=== PATIENT | male | born 1975 | race Caucasian/White ===

== ENCOUNTER → 2016-12-09 | Outpatient (CLI) | payer MEDICARE, OTHER ==
[2016-12-09 16:32] LABS: Basophils # (A) 0.1 k/uL (0-0.2); Basophils % (A) 1 %; CH 31.5; CHCM 34.6; Eosinophils # (A) 0.2 k/uL (0-0.7); Eosinophils % (A) 4 %; HCT 47.3 % (39.0-53.0); HDW 2.49; HGB 15.9 gm/dL (13.0-17.5); Luc # (Auto) 0.15; Luc % (Auto) 2; Lymphocytes # (A) 1.4 k/uL (1.0-4.8); Lymphocytes % (A) 23 %; MCH 30.8 pg (25.0-35.0); MCHC 33.7 g/dL (31.0-37.0); MCV 91.3 fL (80.0-100.0); Mean Platelet Volume 7.5; Monocytes # (A) 0.4 k/uL (0-1.0); Monocytes % (A) 7 %; Neutrophils # (A) 3.9 k/uL (1.3-7.7); Neutrophils % (A) 63 %; RBC 5.18 m/uL (4.30-5.90); WBC 6.2 k/uL (3.8-10.6); WBC (Perox) 6.24
[2016-12-09 16:55] LABS: ALT 51 U/L (21-72); AST 31 U/L (17-59); Alkaline Phosphatase 95 U/L (38-126); Bilirubin, Delta 0.2 mg/dL (0.0-0.2); Blood Urea Nitrogen 11 mg/dL (9-20); C Reactive Protein <5.0 mg/L (<10.0); Calcium 9.5 mg/dL (8.4-10.2); Non-African American GFR(MDRD) >60 (>60 ml/min/1.73 sqM); Total Bilirubin 0.7 mg/dL (0.2-1.3)
[2016-12-09 18:51] LABS: Erythrocyte Sedimentation Rate 5 mm/hr (0-15)
== END | disposition home or self-care (01) ==
LOC: LABWHC1 16:09
PROVIDERS: ATTEND Internal Medicine Rheumatology
DX: D51.1 Vitamin B12 deficiency anemia due to selective vitamin B12 malabsorption with proteinuria (principal); D63.8 Anemia in other chronic diseases classified elsewhere; M25.50 Pain in unspecified joint; N18.9 Chronic kidney disease, unspecified; R77.0 Abnormality of albumin; E80.7 Disorder of bilirubin metabolism, unspecified; M81.0 Age-related osteoporosis without current pathological fracture; E55.9 Vitamin D deficiency, unspecified; E21.0 Primary hyperparathyroidism; Z79.1 Long term (current) use of non-steroidal anti-inflammatories (NSAID)
CPT/HCPCS: 36415; 82040; 82248; 82306; 82310; 82565; 83970; 84075; 84450; 84460; 84520; 85025; 85652; 86140

== ENCOUNTER 2017-01-15 05:28 | Emergency (ER) | payer MEDICARE, OTHER ==
[2017-01-15 05:32] VITALS: BP 142/75; PULSE 73; RESP 16; TEMP 97.9
[2017-01-15] MEDS ORDERED: PROPARACAINE 0.5% OPHTH DROPS 15 ML BTL ONE (05:34)
--- NOTE | 2017-01-15 05:55 | ED ---
ENT HPI - General Chief complaint: ENT Stated complaint: Eye Injury Time Seen by Provider: 01/15/17 05:34 Source: patient, RN notes reviewed Mode of arrival: ambulatory Limitations: no limitations - History of Present Illness Initial comments: This is a 32-year-old male who states he was cutting grass yesterday with him in the right eye. He does wear glasses he states it water for a while and got better but then he said pain in his right leg. He denies any other complaints at this time no blurred vision or blindness no other injury reported. She's looking dark and as I was concerned about a foreign body. MD complaint: trauma/injury - Related Data Home Medications Medication Instructions Recorded Confirmed Certolizumab Pegol [Cimzia] 200 mg SQ Q14D 05/06/16 05/07/16 Lansoprazole [Prevacid] 15 mg PO DAILY 05/06/16 05/07/16 Lisinopril 40 mg PO DAILY 05/06/16 05/07/16 amLODIPine [Norvasc] 10 mg PO DAILY 05/06/16 05/07/16 Methotrexate Sodium (Pf) 25 mg IJ WEEKLY 05/07/16 05/07/16 [Methotrexate 25 mg/ml Vial] Allergies Allergy/AdvReac Type Severity Reaction Status Date / Time No Known Allergies Allergy Verified 01/15/17 05:32 Review of Systems ROS Statement: Those systems with pertinent positive or pertinent negative responses have been documented in the HPI. ROS Other: All systems not noted in ROS Statement are negative. Past Medical History Past Medical History: Asthma, GERD/Reflux, Hypertension, Rheumatoid Arthritis ( RA) History of Any Multi-Drug Resistant Organisms: None Reported Additional Past Surgical History / Comment(s): EGD Past Anesthesia/Blood Transfusion Reactions: No Reported Reaction Past Psychological History: Anxiety, Bipolar Smoking Status: Current every day smoker Past Alcohol Use History: None Reported Past Drug Use History: None Reported - Past Family History Mother Family Medical History: No Reported History General Exam - General Exam Comments Initial Comments: This is a well-developed well-nourished awake alert oriented 5 male Limitations: no limitations General appearance: alert, in no apparent distress Head exam: Present: atraumatic, normocephalic, normal inspection Eye exam: Present: PERRL, EOMI, other (Subjective conjunctival hematoma seen to the lateral aspect of the right eye lateral to the limbus. The cornea is clear no hyphema.) ENT exam: Present: normal exam Neck exam: Present: normal inspection Neurological exam: Present: alert, oriented X3, CN II-XII intact Psychiatric exam: Present: normal affect, normal mood Skin exam: Present: warm, dry, intact, normal color. Absent: rash Course Vital Signs 01/15/17 05:30 Temperature 97.9 F Pulse Rate 73 Respiratory 16 Rate Blood Pressure 142/75 O2 Sat by Pulse 98 Oximetry Procedures - Procedures Initial comment: I did anesthetize the patient's right eye using proparacaine. I then put for seeming in the right eye I did dieter the eyelids no foreign body is seen. The cornea is clear the anterior chamber appears clear. I did use a Wood lamp to examine the eye. He exam is consistent with a subconjunctival hematoma to the right aspect of the right eye. Medical Decision Making - Medical Decision Making No further workup is indicated patient will be discharged I did recommend over- the-counter Visine for moisturization the patient does wear glasses and does not wear contact lenses. He has minimal discomfort at this time. He also had minimal discomfort prior to anesthetizing drops Disposition Clinical Impression: Subconjunctival hematoma Disposition: HOME SELF-CARE Condition: Good Instructions: Subconjunctival Hemorrhage (ED), Hematoma (ED) Additional Instructions: [id number] Visine for moisturization follow-up when necessary Referrals: Darrion Howard MD [Primary Care Provider] - 1-2 days
[2017-01-15] MEDS ORDERED: PROPARACAINE 0.5% OPHTH DROPS 15 ML BTL RIGHT EYE STA (05:57)
== END 2017-01-15 06:07 | disposition home or self-care (01) ==
LOC: EC 05:28
DX: S05.11XA Contusion of eyeball and orbital tissues, right eye, initial encounter (principal); M79.604 Pain in right leg; K21.9 Gastro-esophageal reflux disease without esophagitis; I10 Essential (primary) hypertension; M06.9 Rheumatoid arthritis, unspecified; F17.200 Nicotine dependence, unspecified, uncomplicated; Z79.899 Other long term (current) drug therapy; W22.8XXA Striking against or struck by other objects, initial encounter; Y93.89 Activity, other specified
CPT/HCPCS: 99283

== ENCOUNTER 2017-02-13 20:49 | Emergency (ER) | payer MEDICARE, OTHER ==
[2017-02-13] MEDS ORDERED: LORazepam 2 MG/ML SYRINGE IV STA (21:44)
[2017-02-13] MEDS ORDERED: SODIUM CHLORIDE 0.9% 1,000 ML IV STA (21:44)
--- NOTE | 2017-02-13 21:47 | ED ---
General Adult HPI - General Chief complaint: Anxiety Stated complaint: Palpitations Time Seen by Provider: 02/13/17 21:30 Source: patient, family, RN notes reviewed Mode of arrival: ambulatory Limitations: no limitations - History of Present Illness Initial comments: Patient is a pleasant 41-year-old male presenting to the emergency department complaining of anxiety and palpitations. Patient does have similar symptoms chronically however symptoms have been worse over the past week. Patient states symptoms started today as afternoon around an hour after he woke up. Patient states his heart was racing. Patient feels like his heart is still racing and pounding. Patient omits to feeling anxious. Patient is unclear why he is anxious. Patient does have chronic anxiety as well. No chest pain. No dyspnea. - Related Data Home Medications Medication Instructions Recorded Confirmed Lisinopril 40 mg PO DAILY 05/06/16 02/13/17 amLODIPine [Norvasc] 10 mg PO DAILY 05/06/16 02/13/17 Methotrexate Sodium (Pf) 10 mg SQ WE 05/07/16 02/13/17 [Methotrexate 25 mg/ml Vial] ALPRAZolam [Xanax] 0.25 mg PO TID PRN 02/13/17 02/13/17 Adalimumab [Humira Pen] 40 mg SQ [id number] 02/13/17 02/13/17 Omeprazole Magnesium [Prilosec OTC] 20 mg PO DAILY 02/13/17 02/13/17 hydrALAZINE HCL [Apresoline] 100 mg PO BID 02/13/17 02/13/17 Allergies Allergy/AdvReac Type Severity Reaction Status Date / Time No Known Allergies Allergy Verified 02/13/17 21:30 Review of Systems ROS Statement: Those systems with pertinent positive or pertinent negative responses have been documented in the HPI. ROS Other: All systems not noted in ROS Statement are negative. Constitutional: Denies: fever Eyes: Denies: eye pain ENT: Denies: ear pain Respiratory: Denies: cough Cardiovascular: Reports: palpitations. Denies: chest pain Endocrine: Denies: fatigue Gastrointestinal: Denies: abdominal pain Genitourinary: Denies: dysuria Musculoskeletal: Denies: back pain Skin: Denies: rash Neurological: Reports: headache. Denies: weakness Past Medical History Past Medical History: Asthma, GERD/Reflux, Hypertension, Rheumatoid Arthritis ( RA) History of Any Multi-Drug Resistant Organisms: None Reported Additional Past Surgical History / Comment(s): EGD Past Anesthesia/Blood Transfusion Reactions: No Reported Reaction Past Psychological History: Anxiety, Bipolar Smoking Status: Current every day smoker Past Alcohol Use History: None Reported Past Drug Use History: Marijuana - Past Family History Mother Family Medical History: No Reported History General Exam Limitations: no limitations General appearance: alert, in no apparent distress Head exam: Present: atraumatic Eye exam: Present: normal appearance, PERRL ENT exam: Present: normal oropharynx Neck exam: Present: normal inspection Respiratory exam: Present: normal lung sounds bilaterally Cardiovascular Exam: Present: tachycardia Expanded Peripheral pulses: 2+: Radial (R), Radial (L), Posterior Tibialis (R), Posterior Tibialis (L) GI/Abdominal exam: Present: soft. Absent: tenderness Extremities exam: Present: normal inspection. 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 OH 180. QRS 98. QT 3:30. QTC 452. Right axis. Normal QRS. No acute ST change. Medical Decision Making - Medical Decision Making Patient reevaluated and resting comfortably in bed. Palpitations have resolved. Patient does complain of mild headache and nausea. Patient states headache is chronic from his neck problems. Patient and family updated on results and need for follow-up. Patient is comfortable with discharge. - Lab Data Result diagrams: 02/13/17 21:10 02/13/17 21:10 Lab Results 02/13/17 02/13/17 02/13/17 Range/Units 21:10 21:10 21:10 WBC 11.3 H (3.8-10.6) k/uL RBC 5.23 (4.30-5.90) m/uL Hgb 16.6 (13.0-17.5) gm/dL Hct 45.8 (39.0-53.0) % MCV 87.6 (80.0-100.0) fL MCH 31.8 (25.0-35.0) pg MCHC 36.3 (31.0-37.0) g/dL RDW 12.9 (11.5-15.5) % Plt Count 238 (150-450) k/uL Neutrophils % 69 % Lymphocytes % 18 % Monocytes % 8 % Eosinophils % 2 % Basophils % 1 % Neutrophils # 7.9 H (1.3-7.7) k/uL Lymphocytes # 2.0 (1.0-4.8) k/uL Monocytes # 0.9 (0-1.0) k/uL Eosinophils # 0.3 (0-0.7) k/uL Basophils # 0.1 (0-0.2) k/uL D-Dimer (<0.60) mg/L FEU Sodium 136 L (137-145) mmol/L Potassium 4.0 (3.5-5.1) mmol/L Chloride 104 (98-107) mmol/L Carbon Dioxide 22 (22-30) mmol/L Anion Gap 10 mmol/L BUN 11 (9-20) mg/dL Creatinine 0.66 (0.66-1.25) mg/dL Est GFR (MDRD) Af Amer >60 (>60 ml/min/1.73 sqM) Est GFR (MDRD) Non-Af >60 (>60 ml/min/1.73 sqM) Glucose 109 H (74-99) mg/dL Calcium 9.2 (8.4-10.2) mg/dL Total Bilirubin 0.5 (0.2-1.3) mg/dL AST 33 (17-59) U/L ALT 57 (21-72) U/L Alkaline Phosphatase 110 (38-126) U/L Total Creatine Kinase (55-170) U/L Troponin I <0.012 (0.000-0.034) ng/mL Total Protein 7.6 (6.3-8.2) g/dL Albumin 4.5 (3.5-5.0) g/dL 02/13/17 02/13/17 Range/Units 21:53 21:53 WBC (3.8-10.6) k/uL RBC (4.30-5.90) m/uL Hgb (13.0-17.5) gm/dL Hct (39.0-53.0) % MCV (80.0-100.0) fL MCH (25.0-35.0) pg MCHC (31.0-37.0) g/dL RDW (11.5-15.5) % Plt Count (150-450) k/uL Neutrophils % % Lymphocytes % % Monocytes % % Eosinophils % % Basophils % % Neutrophils # (1.3-7.7) k/uL Lymphocytes # (1.0-4.8) k/uL Monocytes # (0-1.0) k/uL Eosinophils # (0-0.7) k/uL Basophils # (0-0.2) k/uL D-Dimer <0.17 (<0.60) mg/L FEU Sodium (137-145) mmol/L Potassium (3.5-5.1) mmol/L Chloride (98-107) mmol/L Carbon Dioxide (22-30) mmol/L Anion Gap mmol/L BUN (9-20) mg/dL Creatinine (0.66-1.25) mg/dL Est GFR (MDRD) Af Amer (>60 ml/min/1.73 sqM) Est GFR (MDRD) Non-Af (>60 ml/min/1.73 sqM) Glucose (74-99) mg/dL Calcium (8.4-10.2) mg/dL Total Bilirubin (0.2-1.3) mg/dL AST (17-59) U/L ALT (21-72) U/L Alkaline Phosphatase (38-126) U/L Total Creatine Kinase 83 (55-170) U/L Troponin I (0.000-0.034) ng/mL Total Protein (6.3-8.2) g/dL Albumin (3.5-5.0) g/dL - Radiology Data Radiology results: image reviewed (Chest x-ray shows no acute process.) Disposition Clinical Impression: Palpitations Disposition: HOME SELF-CARE Condition: Stable Instructions: Generalized Anxiety Disorder (ED), Palpitations (ED) Additional Instructions: Please follow-up to in the next day or 2 for recheck. Return for increased heart rate, pain or difficulty in breathing, worsening or change in symptoms or other concerns. Referrals: Darrion Howard MD [Primary Care Provider] - 1-2 days Time of Disposition: 22:55
[2017-02-13 21:48] LABS: Basophils # (A) 0.1 k/uL (0-0.2); Basophils % (A) 1 %; CHCM 35.5; Eosinophils # (A) 0.3 k/uL (0-0.7); Eosinophils % (A) 2 %; HCT 45.8 % (39.0-53.0); HDW 2.48; HGB 16.6 gm/dL (13.0-17.5); Luc # (Auto) 0.19; Luc % (Auto) 2; Lymphocytes % (A) 18 %; MCH 31.8 pg (25.0-35.0); MCHC 36.3 g/dL (31.0-37.0); MCV 87.6 fL (80.0-100.0); Mean Platelet Volume 7.1; Monocytes # (A) 0.9 k/uL (0-1.0); Monocytes % (A) 8 %; Neutrophils # (A) 7.9 k/uL (1.3-7.7); Neutrophils % (A) 69 %; RBC 5.23 m/uL (4.30-5.90); RDW 12.9 % (11.5-15.5); WBC 11.3 k/uL (3.8-10.6); WBC (Perox) 11.52
[2017-02-13 21:56] LABS: ALT 57 U/L (21-72); AST 33 U/L (17-59); Alkaline Phosphatase 110 U/L (38-126); Anion Gap 10 mmol/L; Blood Urea Nitrogen 11 mg/dL (9-20); Calcium 9.2 mg/dL (8.4-10.2); Carbon Dioxide 22 mmol/L (22-30); Chloride 104 mmol/L (98-107); Glucose 109 mg/dL (74-99); Non-African American GFR(MDRD) >60 (>60 ml/min/1.73 sqM); Sodium 136 mmol/L (137-145); Total Bilirubin 0.5 mg/dL (0.2-1.3); Total Protein 7.6 g/dL (6.3-8.2)
--- NOTE | 2017-02-13 22:31 | XR ---
EXAM: XR Chest, 2 Views CLINICAL HISTORY: Reason: palpitations TECHNIQUE: Frontal and lateral views of the chest. COMPARISON: No relevant prior studies available. FINDINGS: Lungs: Unremarkable. No consolidation. Pleural space: Unremarkable. No pneumothorax. Heart: Unremarkable. No cardiomegaly. Mediastinum: Unremarkable. Bones/joints: No acute osseous abnormality. IMPRESSION: No acute cardiopulmonary process.
[2017-02-13 22:53] LABS: Creatine Kinase MB 0.5 ng/mL (0.0-2.4)
[2017-02-13] MEDS ORDERED: ONDANSETRON 4 MG/2 ML VIAL IVP STA (22:53)
[2017-02-13 22:55] VITALS: TEMP 97.7
[2017-02-13 23:16] VITALS: BP 141/81; PULSE 93; RESP 18
== END 2017-02-13 23:16 | disposition home or self-care (01) ==
LOC: EC 20:49
DX: R00.2 Palpitations (principal); R51 Headache; R11.0 Nausea; F41.9 Anxiety disorder, unspecified; I10 Essential (primary) hypertension; K21.9 Gastro-esophageal reflux disease without esophagitis; M06.9 Rheumatoid arthritis, unspecified; F17.200 Nicotine dependence, unspecified, uncomplicated; Z79.899 Other long term (current) drug therapy
CPT/HCPCS: 99284; 96374; 96375; 96361; 36415; 93005; 85379; 80053; 82550; 82553; 84484; 85025; 71020; J2060; J2405

== ENCOUNTER → 2017-04-01 | Outpatient (CLI) | payer MEDICARE, OTHER ==
[2017-04-01 15:27] LABS: Basophils # (A) 0.1 k/uL (0-0.2); Basophils % (A) 1 %; CH 30.7; CHCM 34.8; Eosinophils # (A) 0.2 k/uL (0-0.7); Eosinophils % (A) 4 %; HCT 44.7 % (39.0-53.0); HDW 2.62; HGB 15.7 gm/dL (13.0-17.5); Luc % (Auto) 3; Lymphocytes # (A) 1.6 k/uL (1.0-4.8); Lymphocytes % (A) 26 %; MCH 31.1 pg (25.0-35.0); MCHC 35.1 g/dL (31.0-37.0); MCV 88.6 fL (80.0-100.0); Monocytes # (A) 0.6 k/uL (0-1.0); Monocytes % (A) 9 %; Neutrophils # (A) 3.5 k/uL (1.3-7.7); Neutrophils % (A) 57 %; RBC 5.05 m/uL (4.30-5.90); RDW 13.3 % (11.5-15.5); WBC 6.1 k/uL (3.8-10.6); WBC (Perox) 6.03
[2017-04-01 15:30] LABS: ALT 56 U/L (21-72); AST 29 U/L (17-59); Blood Urea Nitrogen 13 mg/dL (9-20); Non-African American GFR(MDRD) >60 (>60 ml/min/1.73 sqM)
[2017-04-01 19:45] LABS: Erythrocyte Sedimentation Rate 10 mm/hr (0-15)
== END | disposition home or self-care (01) ==
LOC: LABWHC1 14:49
PROVIDERS: ATTEND Internal Medicine Rheumatology
DX: N18.9 Chronic kidney disease, unspecified (principal); M25.50 Pain in unspecified joint; D63.8 Anemia in other chronic diseases classified elsewhere; Z79.1 Long term (current) use of non-steroidal anti-inflammatories (NSAID)
CPT/HCPCS: 36415; 82565; 84450; 84460; 84520; 85025; 85652

== ENCOUNTER → 2017-07-17 | Outpatient (CLI) | payer MEDICARE, OTHER ==
[2017-07-17 15:45] LABS: Basophils # (A) 0.1 k/uL (0-0.2); Basophils % (A) 1 %; CH 31.1; CHCM 33.3; Eosinophils # (A) 0.3 k/uL (0-0.7); Eosinophils % (A) 5 %; HDW 2.32; HGB 15.7 gm/dL (13.0-17.5); Luc # (Auto) 0.16; Luc % (Auto) 2; Lymphocytes # (A) 1.7 k/uL (1.0-4.8); Lymphocytes % (A) 23 %; MCH 29.6 pg (25.0-35.0); MCHC 31.5 g/dL (31.0-37.0); MCV 93.9 fL (80.0-100.0); Mean Platelet Volume 7.8; Monocytes # (A) 0.8 k/uL (0-1.0); Monocytes % (A) 11 %; Neutrophils # (A) 4.3 k/uL (1.3-7.7); Neutrophils % (A) 58 %; RBC 5.32 m/uL (4.30-5.90); RDW 14.6 % (11.5-15.5); WBC 7.5 k/uL (3.8-10.6); WBC (Perox) 7.26
[2017-07-17 16:00] LABS: ALT 68 U/L (21-72); AST 32 U/L (17-59); Alkaline Phosphatase 102 U/L (38-126); Blood Urea Nitrogen 12 mg/dL (9-20); C Reactive Protein 8.1 mg/L (<10.0); Calcium 9.9 mg/dL (8.4-10.2); Non-African American GFR(MDRD) >60 (>60 ml/min/1.73 sqM); Total Bilirubin 0.6 mg/dL (0.2-1.3)
[2017-07-17 19:33] LABS: Erythrocyte Sedimentation Rate 6 mm/hr (0-15)
== END | disposition home or self-care (01) ==
LOC: LABWHC1 15:11
PROVIDERS: ATTEND Internal Medicine Rheumatology
DX: N18.9 Chronic kidney disease, unspecified (principal); M25.50 Pain in unspecified joint; R77.0 Abnormality of albumin; E80.7 Disorder of bilirubin metabolism, unspecified; M81.0 Age-related osteoporosis without current pathological fracture; Z79.1 Long term (current) use of non-steroidal anti-inflammatories (NSAID)
CPT/HCPCS: 36415; 82040; 82247; 82306; 82310; 82565; 83970; 84075; 84450; 84460; 84520; 85025; 85652; 86140

== ENCOUNTER → 2017-10-13 | Outpatient (CLI) | payer MEDICARE ==
[2017-10-13 16:35] LABS: Basophils # (A) 0.1 k/uL (0-0.2); Basophils % (A) 1 %; Eosinophils # (A) 0.4 k/uL (0-0.7); Eosinophils % (A) 5 %; HCT 46.8 % (39.0-53.0); HGB 15.7 gm/dL (13.0-17.5); Lymphocytes # (A) 1.8 k/uL (1.0-4.8); Lymphocytes % (A) 27 %; MCH 29.9 pg (25.0-35.0); MCHC 33.6 g/dL (31.0-37.0); Mean Platelet Volume 7.8; Monocytes # (A) 0.7 k/uL (0-1.0); Monocytes % (A) 10 %; Neutrophils # (A) 3.7 k/uL (1.3-7.7); Neutrophils % (A) 55 %; Platelet Count 202 k/uL (150-450); RBC 5.26 m/uL (4.30-5.90); RDW 12.9 % (11.5-15.5); WBC 6.7 k/uL (3.8-10.6)
[2017-10-13 16:46] LABS: ALT 55 U/L (21-72); AST 31 U/L (17-59); Albumin 4.4 g/dL (3.5-5.0); Blood Urea Nitrogen 12 mg/dL (9-20); C Reactive Protein 5.4 mg/L (<10.0); Calcium 9.8 mg/dL (8.4-10.2)
[2017-10-13 19:30] LABS: Erythrocyte Sedimentation Rate 3 mm/hr (0-15)
[2017-10-14 03:34] LABS: Vitamin D 25 Hydroxy 21.1 ng/mL (30.0-100.0)
== END | disposition home or self-care (01) ==
LOC: LABWHC1 15:43
PROVIDERS: ATTEND Internal Medicine Rheumatology
DX: M25.50 Pain in unspecified joint (principal); R77.0 Abnormality of albumin; N18.9 Chronic kidney disease, unspecified; Z79.1 Long term (current) use of non-steroidal anti-inflammatories (NSAID); E55.9 Vitamin D deficiency, unspecified; E21.0 Primary hyperparathyroidism; L40.9 Psoriasis, unspecified; M10.09 Idiopathic gout, multiple sites
CPT/HCPCS: 36415; 82040; 82306; 82310; 82565; 83970; 84450; 84460; 84520; 84550; 85025; 85652; 86140

== ENCOUNTER → 2018-04-23 | Outpatient (CLI) | payer MEDICARE ==
[~2018-04-23] MED LIST: INFLIXIMAB-DYYB 800 MG in SODIUM CHLORIDE 0.9% 250 ML IV NR; SODIUM CHLORIDE 0.9% 500 ML in EMPTY BAG 1 BAG IV NR; SODIUM CHLORIDE 0.9% 500 ML in EMPTY BAG 1 BAG IV PRN
[2018-04-23 11:27] VITALS: TEMP 98
[2018-04-23 12:00] LABS: Basophils # (A) 0.1 k/uL (0-0.2); Basophils % (A) 1 %; Eosinophils # (A) 0.5 k/uL (0-0.7); Eosinophils % (A) 5 %; HCT 45.5 % (39.0-53.0); HGB 15.3 gm/dL (13.0-17.5); Lymphocytes # (A) 2.3 k/uL (1.0-4.8); Lymphocytes % (A) 26 %; MCH 30.2 pg (25.0-35.0); MCHC 33.7 g/dL (31.0-37.0); MCV 89.6 fL (80.0-100.0); Mean Platelet Volume 7.2; Monocytes # (A) 0.8 k/uL (0-1.0); Monocytes % (A) 10 %; Neutrophils # (A) 4.9 k/uL (1.3-7.7); Neutrophils % (A) 56 %; Platelet Count 199 k/uL (150-450); RBC 5.08 m/uL (4.30-5.90); RDW 12.9 % (11.5-15.5); WBC 8.7 k/uL (3.8-10.6)
[2018-04-23 12:04] LABS: ALT 49 U/L (21-72); AST 31 U/L (17-59); Blood Urea Nitrogen 14 mg/dL (9-20)
[2018-04-23 12:27] VITALS: BP 129/80; PULSE 75; RESP 16
[2018-04-23 12:30] LABS: C Reactive Protein 8.2 mg/L (<10.0)
[2018-04-23 13:08] LABS: Erythrocyte Sedimentation Rate 6 mm/hr (0-15)
== END ==
LOC: PROCWHC3 11:05
PROVIDERS: ATTEND Internal Medicine Rheumatology
DX: L40.50 Arthropathic psoriasis, unspecified (principal)
CPT/HCPCS: 85652; 82565; 84450; 84460; 84520; 85025; 86140; 96413; 96415; 36415; Q5103

== ENCOUNTER → 2019-02-26 | Day surgery (SDC) | payer MEDICARE ==
[~2019-02-26] MED LIST changes: +GLUCAGON 1 MG/ML VIAL IM STA; -INFLIXIMAB-DYYB 800 MG in SODIUM CHLORIDE 0.9% 250 ML IV NR; -SODIUM CHLORIDE 0.9% 500 ML in EMPTY BAG 1 BAG IV NR; -SODIUM CHLORIDE 0.9% 500 ML in EMPTY BAG 1 BAG IV PRN
[2019-02-26 15:04] VITALS: BP 138/77; PULSE 78; RESP 16; TEMP 97.9
== END | disposition home or self-care (01) ==
LOC: RADMRIMAIN 14:17
PROVIDERS: ATTEND Internal Medicine Gastroenterology
DX: K52.9 Noninfective gastroenteritis and colitis, unspecified (principal); Z53.8 Procedure and treatment not carried out for other reasons
CPT/HCPCS: 96372; 36415; J1610

== ENCOUNTER → 2020-02-08 | Outpatient (CLI) | payer MEDICARE ==
[2020-02-08 15:04] LABS: Basophils # (A) 0.1 k/uL (0-0.2); Basophils % (A) 1 %; Eosinophils # (A) 0.4 k/uL (0-0.7); Eosinophils % (A) 5 %; HCT 46.6 % (39.0-53.0); HGB 15.1 gm/dL (13.0-17.5); Lymphocytes # (A) 1.5 k/uL (1.0-4.8); Lymphocytes % (A) 17 %; MCHC 32.5 g/dL (31.0-37.0); MCV 92.3 fL (80.0-100.0); Mean Platelet Volume 7.4; Monocytes # (A) 0.8 k/uL (0-1.0); Monocytes % (A) 9 %; Neutrophils # (A) 5.8 k/uL (1.3-7.7); Neutrophils % (A) 66 %; Platelet Count 250 k/uL (150-450); RBC 5.05 m/uL (4.30-5.90); RDW 12.7 % (11.5-15.5); WBC 8.8 k/uL (3.8-10.6)
[2020-02-09 00:39] LABS: Erythrocyte Sedimentation Rate 11 mm/Hr (0-15)
[2020-02-09 01:35] LABS: African American GFR (CKD) 127.7 (60.0-200.0); Albumin 4.6 g/dL (3.80-4.90); Anion Gap 7.8 mmol/L (4.00-12.00); Calcium 9.2 mg/dL (8.7-10.3); Carbon Dioxide 25.2 mmol/L (21.6-31.8); Non-African American GFR(CKD) 110.2 (60.0-200.0); Potassium 4.5 mmol/L (3.5-5.5)
== END | disposition home or self-care (01) ==
LOC: LABWHC1 14:41
PROVIDERS: ATTEND Internal Medicine Rheumatology
DX: M25.50 Pain in unspecified joint (principal)
CPT/HCPCS: 36415; 80051; 82040; 82310; 82565; 84450; 84460; 84520; 85025; 85652; 86140; 86480

== ENCOUNTER → 2020-05-08 | Outpatient (CLI) | payer MEDICARE ==
[2020-05-08 15:39] LABS: Basophils # (A) 0.1 k/uL (0-0.2); Basophils % (A) 1 %; Eosinophils # (A) 0.4 k/uL (0-0.7); Eosinophils % (A) 4 %; HCT 46.2 % (39.0-53.0); HGB 15.4 gm/dL (13.0-17.5); Lymphocytes # (A) 1.4 k/uL (1.0-4.8); Lymphocytes % (A) 16 %; MCH 31.4 pg (25.0-35.0); MCHC 33.4 g/dL (31.0-37.0); Mean Platelet Volume 7.1; Monocytes # (A) 0.6 k/uL (0-1.0); Monocytes % (A) 8 %; Neutrophils # (A) 5.9 k/uL (1.3-7.7); Neutrophils % (A) 70 %; Platelet Count 287 k/uL (150-450); RBC 4.92 m/uL (4.30-5.90); RDW 13.5 % (11.5-15.5); WBC 8.4 k/uL (3.8-10.6)
[2020-05-08 23:48] LABS: Erythrocyte Sedimentation Rate 20 mm/Hr (0-15)
[2020-05-09 03:42] LABS: African American GFR (CKD) 134.9 (60.0-200.0); Albumin 4.5 g/dL (3.80-4.90); C Reactive Protein 2.3 mg/dL (0.0-0.8); Calcium 9.4 mg/dL (8.7-10.3); Non-African American GFR(CKD) 116.4 (60.0-200.0)
== END | disposition home or self-care (01) ==
LOC: LABWHC1 14:46
PROVIDERS: ATTEND Internal Medicine Rheumatology
DX: M25.50 Pain in unspecified joint (principal); M06.4 Inflammatory polyarthropathy; Z79.899 Other long term (current) drug therapy
CPT/HCPCS: 36415; 82040; 82310; 82565; 84450; 84460; 84520; 85025; 85652; 86140

== ENCOUNTER → 2020-11-01 | Outpatient (CLI) | payer MEDICARE ==
[2020-11-02 01:36] LABS: Basophils # (A) 0.08 X 10*3/uL (0.00-0.10); Basophils % (A) 0.9 %; Eosinophils # (A) 0.38 X 10*3/uL (0.04-0.35); Eosinophils % (A) 4.2 %; HCT 44.6 % (39.6-50.0); HGB 14.8 g/dL (13.0-17.0); Lymphocytes # (A) 1.69 X 10*3/uL (0.90-5.00); Lymphocytes % (A) 18.8 %; MCH 30.9 pg (27.0-32.0); MCHC 33.2 g/dL (32.0-37.0); MCV 93.1 fL (80.0-97.0); Mean Platelet Volume 10.9 fL (9.5-12.2); Monocytes % (A) 11.1 %; Neutrophils # (A) 5.83 X 10*3/uL (1.80-7.70); Neutrophils % (A) 64.8 %; Platelet Count 285 X 10*3/uL (140-440); RBC 4.79 X 10*6/uL (4.40-5.60); RDW 13.5 % (11.5-14.5)
[2020-11-02 03:34] LABS: Albumin 4.7 g/dL (3.80-4.90); C Reactive Protein 1.5 mg/dL (0.0-0.8); Calcium 9.4 mg/dL (8.7-10.3); Non-African American GFR(CKD) 115.6 (60.0-200.0)
[2020-11-02 03:45] LABS: Erythrocyte Sedimentation Rate 13 mm/Hr (0-15)
== END | disposition home or self-care (01) ==
LOC: LABWHC1 15:43
PROVIDERS: ATTEND Internal Medicine Rheumatology
DX: E55.9 Vitamin D deficiency, unspecified (principal); M06.4 Inflammatory polyarthropathy; M25.50 Pain in unspecified joint; Z79.899 Other long term (current) drug therapy
CPT/HCPCS: 36415; 82040; 82306; 82310; 82565; 82652; 82784; 84450; 84460; 84520; 85025; 85652; 86140

== ENCOUNTER → 2021-01-08 | Outpatient (CLI) | payer MEDICARE ==
[2021-01-08 23:23] LABS: Basophils # (A) 0.07 X 10*3/uL (0.00-0.10); Basophils % (A) 0.8 %; Eosinophils # (A) 0.37 X 10*3/uL (0.04-0.35); Eosinophils % (A) 4.3 %; HCT 44.4 % (39.6-50.0); Lymphocytes # (A) 1.35 X 10*3/uL (0.90-5.00); Lymphocytes % (A) 15.7 %; MCH 30.9 pg (27.0-32.0); MCHC 33.8 g/dL (32.0-37.0); MCV 91.4 fL (80.0-97.0); Mean Platelet Volume 10.5 fL (9.5-12.2); Monocytes # (A) 0.95 X 10*3/uL (0.20-1.00); Monocytes % (A) 11.1 %; Neutrophils # (A) 5.83 X 10*3/uL (1.80-7.70); Neutrophils % (A) 67.9 %; Platelet Count 268 X 10*3/uL (140-440); RBC 4.86 X 10*6/uL (4.40-5.60); WBC 8.59 X 10*3/uL (4.50-10.00)
[2021-01-09 02:33] LABS: African American GFR (CKD) 142.7 (60.0-200.0); C Reactive Protein 1.2 mg/dL (0.0-0.8); Non-African American GFR(CKD) 123.1 (60.0-200.0)
[2021-01-09 14:31] LABS: Erythrocyte Sedimentation Rate 10 mm/Hr (0-15)
== END | disposition home or self-care (01) ==
LOC: LABWHC1 15:52
PROVIDERS: ATTEND Internal Medicine Rheumatology
DX: M06.4 Inflammatory polyarthropathy (principal); R19.5 Other fecal abnormalities; Z79.01 Long term (current) use of anticoagulants
CPT/HCPCS: 36415; 82565; 84450; 84460; 84520; 85025; 85652; 86140

== ENCOUNTER → 2021-04-17 | Outpatient (CLI) | payer MEDICARE ==
[2021-04-17 22:46] LABS: Basophils # (A) 0.09 X 10*3/uL (0.00-0.10); Eosinophils # (A) 0.36 X 10*3/uL (0.04-0.35); Eosinophils % (A) 4.2 %; HCT 44.8 % (39.6-50.0); HGB 15.3 g/dL (13.0-17.0); Lymphocytes # (A) 1.46 X 10*3/uL (0.90-5.00); Lymphocytes % (A) 16.9 %; MCH 31.2 pg (27.0-32.0); MCHC 34.2 g/dL (32.0-37.0); MCV 91.2 fL (80.0-97.0); Mean Platelet Volume 10.7 fL (9.5-12.2); Monocytes # (A) 0.93 X 10*3/uL (0.20-1.00); Monocytes % (A) 10.8 %; Neutrophils # (A) 5.78 X 10*3/uL (1.80-7.70); Neutrophils % (A) 66.9 %; Platelet Count 264 X 10*3/uL (140-440); RBC 4.91 X 10*6/uL (4.40-5.60); RDW 13.4 % (11.5-14.5); WBC 8.64 X 10*3/uL (4.50-10.00)
[2021-04-18 00:03] LABS: Erythrocyte Sedimentation Rate 7 mm/Hr (0-15)
[2021-04-18 07:15] LABS: African American GFR (CKD) 142.7 (60.0-200.0); C Reactive Protein 0.5 mg/dL (0.0-0.8); Non-African American GFR(CKD) 123.1 (60.0-200.0)
== END | disposition home or self-care (01) ==
LOC: LABWHC1 16:00
PROVIDERS: ATTEND Internal Medicine Rheumatology
DX: R19.5 Other fecal abnormalities (principal)
CPT/HCPCS: 36415; 82565; 84450; 84460; 84520; 85025; 85652; 86140

== ENCOUNTER → 2022-01-24 | Outpatient (CLI) | payer MEDICARE ==
[2022-01-24 23:01] LABS: Blood Urea Nitrogen 11.8 mg/dL (9.0-27.0); C Reactive Protein 0.6 mg/dL (0.00-0.80); Non-African American GFR(CKD) 113.1 (60.0-200.0)
[2022-01-24 23:02] LABS: Basophils # (A) 0.07 X 10*3/uL (0.00-0.10); Basophils % (A) 0.9 %; Eosinophils # (A) 0.43 X 10*3/uL (0.04-0.35); Eosinophils % (A) 5.5 %; HCT 45.2 % (39.6-50.0); HGB 14.9 g/dL (13.0-17.0); Immature Grans, Automated 0.1 %; Lymphocytes # (A) 1.45 X 10*3/uL (0.90-5.00); Lymphocytes % (A) 18.6 %; MCH 30.2 pg (27.0-32.0); MCV 91.7 fL (80.0-97.0); Mean Platelet Volume 11.1 fL (9.5-12.2); Monocytes # (A) 0.91 X 10*3/uL (0.20-1.00); Monocytes % (A) 11.7 %; NRBC Per 100 WBC 0 /100 WBCS (0.0-0.0); Neutrophils # (A) 4.93 X 10*3/uL (1.80-7.70); Neutrophils % (A) 63.2 %; Platelet Count 290 X 10*3/uL (140-440); RBC 4.93 X 10*6/uL (4.40-5.60); RDW 13.1 % (11.5-14.5)
[2022-01-25 00:52] LABS: Erythrocyte Sedimentation Rate 13 mm/Hr (0-15)
== END | disposition home or self-care (01) ==
LOC: LABWHC1 16:18
PROVIDERS: ATTEND Internal Medicine Gastroenterology
DX: K52.9 Noninfective gastroenteritis and colitis, unspecified (principal); M06.4 Inflammatory polyarthropathy; Z79.01 Long term (current) use of anticoagulants; M25.50 Pain in unspecified joint
CPT/HCPCS: 36415; 82565; 82656; 84450; 84460; 84520; 85025; 85652; 86140

== ENCOUNTER → 2022-06-03 | Outpatient (CLI) | payer MEDICARE ==
[2022-06-03 23:47] LABS: African American GFR (CKD) 128.1 (60.0-200.0); Blood Urea Nitrogen 11.3 mg/dL (9.0-27.0); C Reactive Protein 1.6 mg/dL (0.00-0.80); Non-African American GFR(CKD) 110.5 (60.0-200.0)
[2022-06-03 23:50] LABS: Basophils # (A) 0.09 X 10*3/uL (0.00-0.10); Basophils % (A) 0.9 %; Eosinophils % (A) 6.2 %; HCT 43.6 % (39.6-50.0); HGB 14.6 g/dL (13.0-17.0); Immature Grans, Automated 0.4 %; Lymphocytes # (A) 1.52 X 10*3/uL (0.90-5.00); Lymphocytes % (A) 15.6 %; MCH 30.4 pg (27.0-32.0); MCHC 33.5 g/dL (32.0-37.0); MCV 90.8 fL (80.0-97.0); Mean Platelet Volume 10.8 fL (9.5-12.2); Monocytes # (A) 1.22 X 10*3/uL (0.20-1.00); Monocytes % (A) 12.5 %; NRBC Per 100 WBC 0 /100 WBCS (0.0-0.0); Neutrophils # (A) 6.26 X 10*3/uL (1.80-7.70); Neutrophils % (A) 64.4 %; Platelet Count 240 X 10*3/uL (140-440); RDW 13.7 % (11.5-14.5); WBC 9.73 X 10*3/uL (4.50-10.00)
[2022-06-04 00:21] LABS: Erythrocyte Sedimentation Rate 9 mm/Hr (0-15)
== END | disposition home or self-care (01) ==
LOC: LABWHC1 16:20
PROVIDERS: ATTEND Internal Medicine Rheumatology
DX: M25.50 Pain in unspecified joint (principal); M06.4 Inflammatory polyarthropathy; Z79.01 Long term (current) use of anticoagulants
CPT/HCPCS: 36415; 82565; 84450; 84460; 84520; 85025; 85652; 86140

== ENCOUNTER → 2022-10-29 | Outpatient (CLI) | payer MEDICARE ==
[2022-10-29 19:44] LABS: Basophils # (A) 0.07 X 10*3/uL (0.00-0.10); Basophils % (A) 0.8 %; Eosinophils # (A) 0.48 X 10*3/uL (0.04-0.35); Eosinophils % (A) 5.7 %; HCT 44.5 % (39.6-50.0); HGB 15.1 g/dL (13.0-17.0); Immature Grans, Automated 0.4 %; Lymphocytes # (A) 1.32 X 10*3/uL (0.90-5.00); Lymphocytes % (A) 15.7 %; MCH 30.8 pg (27.0-32.0); MCHC 33.9 g/dL (32.0-37.0); MCV 90.6 fL (80.0-97.0); Mean Platelet Volume 10.6 fL (9.5-12.2); Monocytes # (A) 1.38 X 10*3/uL (0.20-1.00); Monocytes % (A) 16.4 %; NRBC Per 100 WBC 0 /100 WBCS (0.0-0.0); Neutrophils # (A) 5.14 X 10*3/uL (1.80-7.70); Platelet Count 266 X 10*3/uL (140-440); RBC 4.91 X 10*6/uL (4.40-5.60); RDW 13.3 % (11.5-14.5); WBC 8.42 X 10*3/uL (4.50-10.00)
[2022-10-29 21:03] LABS: Erythrocyte Sedimentation Rate 10 mm/Hr (0-15)
[2022-10-30 01:56] LABS: Blood Urea Nitrogen 13.3 mg/dL (9.0-27.0); Calcium 9.5 mg/dL (8.7-10.3); Non-African American GFR(CKD) 107.9 (60.0-200.0)
[2022-10-30 02:18] LABS: C Reactive Protein 1.8 mg/dL (0.00-0.80)
== END | disposition home or self-care (01) ==
LOC: LABWHC1 15:39
PROVIDERS: ATTEND Internal Medicine Rheumatology
DX: M45.7 Ankylosing spondylitis of lumbosacral region (principal); E55.9 Vitamin D deficiency, unspecified
CPT/HCPCS: 36415; 82306; 82310; 82565; 84450; 84460; 84520; 85025; 85652; 86140

== ENCOUNTER → 2023-07-02 | Outpatient (CLI) | payer MEDICARE ==
[2023-07-03 02:37] LABS: Basophils # (A) 0.07 X 10*3/uL (0.00-0.10); Basophils % (A) 0.9 %; Eosinophils # (A) 0.38 X 10*3/uL (0.04-0.35); Eosinophils % (A) 4.9 %; HCT 46.4 % (39.6-50.0); HGB 15.7 g/dL (13.0-17.0); Lymphocytes # (A) 1.52 X 10*3/uL (0.90-5.00); Lymphocytes % (A) 19.6 %; MCH 31.7 pg (27.0-32.0); MCHC 33.8 g/dL (32.0-37.0); MCV 93.5 FL (80.0-97.0); Mean Platelet Volume 10.2 FL (9.5-12.2); Monocytes # (A) 0.91 X 10*3/uL (0.20-1.00); Monocytes % (A) 11.8 %; NRBC Per 100 WBC 0 X 10*3/uL (0.00-0.01); Neutrophils # (A) 4.85 X 10*3/uL (1.80-7.70); Neutrophils % (A) 62.7 %; Platelet Count 267 X 10*3/uL (140-440); RBC 4.96 X 10*6/uL (4.40-5.60); RDW 13.6 % (11.5-14.5); WBC 7.74 X 10*3/uL (4.50-10.00)
[2023-07-03 03:11] LABS: ALT 95 U/L (10-49); AST 58 U/L (14-35); Blood Urea Nitrogen 11.5 mg/dL (9.0-27.0); Calcium 9.5 mg/dL (8.7-10.3)
[2023-07-03 04:33] LABS: Erythrocyte Sedimentation Rate 9 mm/Hr (0-15)
== END | disposition home or self-care (01) ==
LOC: LABWHC1 16:13
PROVIDERS: ATTEND Internal Medicine Rheumatology
DX: M25.50 Pain in unspecified joint (principal); M06.4 Inflammatory polyarthropathy; M81.0 Age-related osteoporosis without current pathological fracture; Z79.01 Long term (current) use of anticoagulants
CPT/HCPCS: 36415; 82306; 82310; 82565; 84450; 84460; 84520; 85025; 85652; 86140

== ENCOUNTER → 2023-11-04 | Outpatient (CLI) | payer BC ==
[2023-11-04 19:15] LABS: ALT 72 U/L (10-49); AST 45 U/L (14-35); Blood Urea Nitrogen 13.2 mg/dL (9.0-27.0)
[2023-11-04 19:38] LABS: Basophils # (A) 0.08 X 10*3/uL (0.00-0.10); Basophils % (A) 1.3 %; Eosinophils # (A) 0.41 X 10*3/uL (0.04-0.35); Eosinophils % (A) 6.6 %; HCT 43.6 % (39.6-50.0); HGB 15.1 g/dL (13.0-17.0); Lymphocytes # (A) 1.57 X 10*3/uL (0.90-5.00); Lymphocytes % (A) 25.2 %; MCH 30.8 pg (27.0-32.0); MCHC 34.6 g/dL (32.0-37.0); MCV 88.8 FL (80.0-97.0); Mean Platelet Volume 11.6 FL (9.5-12.2); Monocytes # (A) 0.92 X 10*3/uL (0.20-1.00); Monocytes % (A) 14.8 %; NRBC Per 100 WBC 0 X 10*3/uL (0.00-0.01); Neutrophils # (A) 3.23 X 10*3/uL (1.80-7.70); Neutrophils % (A) 51.8 %; Platelet Count 121 X 10*3/uL (140-440); RBC 4.91 X 10*6/uL (4.40-5.60); RBC Morphology Normal (Normal); RDW 11.9 % (11.5-14.5); WBC 6.23 X 10*3/uL (4.50-10.00)
[2023-11-04 20:00] LABS: Erythrocyte Sedimentation Rate 16 mm/Hr (0-15)
== END | disposition home or self-care (01) ==
LOC: LABWHC1 16:01
PROVIDERS: ATTEND Internal Medicine Rheumatology
DX: M25.50 Pain in unspecified joint (principal); M06.4 Inflammatory polyarthropathy; E55.9 Vitamin D deficiency, unspecified; L50.0 Allergic urticaria; Z79.01 Long term (current) use of anticoagulants
CPT/HCPCS: 36415; 82306; 82565; 84450; 84460; 84520; 85025; 85652; 86140

== ENCOUNTER → 2024-01-26 | Outpatient (CLI) | payer BC ==
[2024-01-27 02:13] LABS: Basophils # (A) 0.08 X 10*3/uL (0.00-0.10); Basophils % (A) 1.1 %; Eosinophils # (A) 0.51 X 10*3/uL (0.04-0.35); Eosinophils % (A) 7.1 %; HCT 47.4 % (39.6-50.0); HGB 16.3 g/dL (13.0-17.0); Lymphocytes # (A) 1.98 X 10*3/uL (0.90-5.00); Lymphocytes % (A) 27.6 %; MCH 30.7 pg (27.0-32.0); MCHC 34.4 g/dL (32.0-37.0); MCV 89.3 FL (80.0-97.0); Mean Platelet Volume 11.9 FL (9.5-12.2); Monocytes # (A) 1.01 X 10*3/uL (0.20-1.00); Monocytes % (A) 14.1 %; NRBC Per 100 WBC 0 X 10*3/uL (0.00-0.01); Neutrophils # (A) 3.58 X 10*3/uL (1.80-7.70); Neutrophils % (A) 49.8 %; Platelet Count 183 X 10*3/uL (140-440); RBC 5.31 X 10*6/uL (4.40-5.60); RDW 12.4 % (11.5-14.5); WBC 7.18 X 10*3/uL (4.50-10.00)
[2024-01-27 02:34] LABS: ALT 76 U/L (10-49); AST 44 U/L (14-35); Blood Urea Nitrogen 11.8 mg/dL (9.0-27.0)
[2024-01-27 02:39] LABS: Erythrocyte Sedimentation Rate 29 mm/Hr (0-15)
== END | disposition home or self-care (01) ==
LOC: LABWHC1 16:04
PROVIDERS: ATTEND Internal Medicine Rheumatology
DX: M25.50 Pain in unspecified joint (principal); M06.4 Inflammatory polyarthropathy; E55.9 Vitamin D deficiency, unspecified; Z79.01 Long term (current) use of anticoagulants
CPT/HCPCS: 36415; 82306; 82565; 84450; 84460; 84520; 85025; 85652; 86140

== ENCOUNTER → 2024-06-04 | Outpatient (CLI) | payer BC ==
[2024-06-05 02:11] LABS: Basophils # (A) 0.07 X 10*3/uL (0.00-0.10); Basophils % (A) 0.9 %; Eosinophils # (A) 0.35 X 10*3/uL (0.04-0.35); Eosinophils % (A) 4.7 %; HCT 47.4 % (39.6-50.0); HGB 16.2 g/dL (13.0-17.0); Lymphocytes # (A) 1.76 X 10*3/uL (0.90-5.00); Lymphocytes % (A) 23.9 %; MCH 31.2 pg (27.0-32.0); MCHC 34.2 g/dL (32.0-37.0); MCV 91.2 FL (80.0-97.0); Monocytes % (A) 12.2 %; NRBC Per 100 WBC 0 X 10*3/uL (0.00-0.01); Neutrophils # (A) 4.27 X 10*3/uL (1.80-7.70); Platelet Count 238 X 10*3/uL (140-440); RDW 12.1 % (11.5-14.5); WBC 7.37 X 10*3/uL (4.50-10.00)
[2024-06-05 02:29] LABS: Erythrocyte Sedimentation Rate 18 mm/Hr (0-15)
[2024-06-05 03:38] LABS: ALT 83 U/L (10-49); AST 48 U/L (14-35); Albumin 4.5 g/dL (3.8-4.9); Blood Urea Nitrogen 10.8 mg/dL (9.0-27.0); GGT 49 U/L (0-73)
== END | disposition home or self-care (01) ==
LOC: LABWHC1 15:59
PROVIDERS: ATTEND Internal Medicine Rheumatology
DX: L40.52 Psoriatic arthritis mutilans (principal); M25.50 Pain in unspecified joint; Z79.01 Long term (current) use of anticoagulants
CPT/HCPCS: 36415; 82040; 82565; 82977; 84450; 84460; 84520; 85025; 85652; 86140